=== PATIENT | female | born 1985 | race Asian ===

== ENCOUNTER 2017-09-20 16:00 | Inpatient (IN) | payer SELFPAY ==
[~2017-09-20] VITALS: Ht 171 cm; Wt 70.0 kg
[2017-09-20] MEDS ORDERED: LACTATED RINGERS 1,000 ML IV SCH (16:24)
[2017-09-20] MEDS ORDERED: PREN-380 PO (16:32)
[2017-09-20 17:45] VITALS: BP 116/77
[2017-09-20 17:59] LABS: BASOPHILS % (AUTO) 0.7 % (0.0-2.0); EOSINOPHILS # (AUTO) 0.1 K/uL (0-0.4); EOSINOPHILS % (AUTO) 1.1 % (0.0-4.0); HEMOGLOBIN 11.9 g/dL (12.0-16.0); LYMPHOCYTES # (AUTO) 1.3 K/uL (2.5-16.5); LYMPHOCYTES % (AUTO) 19.4 % (20.5-51.1); MEAN CORPUSCULAR HEMOGLOBIN 30 pg (27-31); MEAN CORPUSCULAR HGB CONC 34 g/dL (33-37); MEAN CORPUSCULAR VOLUME 90 fL (80-94); MONOCYTES # (AUTO) 0.6 K/uL (0.8-1.0); MONOCYTES % (AUTO) 8.2 % (1.7-9.3); NEUTROPHILS # (AUTO) 4.9 K/uL (1.8-7.7); NEUTROPHILS % (AUTO) 70.6 % (42.2-75.2); PLATELET COUNT (AUTO) 138 K/uL (140-450); RED BLOOD CELL COUNT(AUTO) 3.91 MIL/uL (4.20-5.40); RED CELL DISTRIBUTION WIDTH 13.7 % (11.6-13.7); WHITE BLOOD COUNT (AUTO) 6.9 K/uL (4.8-10.8)
[2017-09-20 18:37] LABS: APPEARANCE,URINE CLEAR (CLEAR); BILIRUBIN,URINE NEGATIVE (NEGATIVE); BLOOD, URINE NEGATIVE (NEGATIVE); COLOR,URINE YELLOW (YELLOW); LEUKOCYTE ESTERASE ,URINE NEGATIVE (NEGATIVE); NITRITE, URINE NEGATIVE (NEGATIVE); PH,URINE 6.5 (5.0-9.0); UGLUCOSE NEGATIVE (NEGATIVE)
[2017-09-20 18:49] LABS: ALBUMIN 2.9 g/dL (3.4-5.0); ANION GAP 13.8 (8-16); CARBON DIOXIDE 22.2 mmol/L (21-32); CREATININE 0.6 mg/dL (0.6-1.3); TOTAL BILIRUBIN 0.1 mg/dL (0.0-1.0)
[2017-09-20] MEDS ORDERED: INFLUENZA VIRUS VACCINE QUAD 0.5 ML SYR IMVAC SCH (22:00)
[2017-09-20] MEDS ORDERED: ceFAZolin 1,000 MG VIAL ONE (23:42)
[2017-09-20] MEDS ORDERED: OXYTOCIN 10 UNITS/ML VIAL ONE (23:47)
[2017-09-20] MEDS ORDERED: METHYLERGONOVINE 0.2 MG/ML AMP ONE (23:48)
[2017-09-20] MEDS ORDERED: TRIAMCINOLONE 40 MG/ML 5ML VIAL ONE (23:48)
[2017-09-20] MEDS ORDERED: MIDAZOLAM 2 MG/2 ML VIAL ONE (23:49)
[2017-09-20] MEDS ORDERED: MORPHINE PRES FREE 10 MG/10 ML AMP IV ONE (23:49)
[2017-09-21] MEDS ORDERED: OXYTOCIN 20 UNITS in LACTATED RINGERS 1,000 ML IV SCH (00:22)
[2017-09-21] MEDS ORDERED: MEPERIDINE 25 MG/ML SYR IVP PRN (00:25)
[2017-09-21] MEDS ORDERED: diphenhydrAMINE 50 MG/ML VIAL IVP PRN ×2 (00:25)
[2017-09-21] MEDS ORDERED: NALOXONE 0.4 MG/ML VIAL IVP PRN ×3 (00:25)
[2017-09-21] MEDS ORDERED: ONDANSETRON 4 MG/2 ML VIAL IVP PRN (00:25)
[2017-09-21] MEDS ORDERED: NALBUPHINE 10 MG/ML AMP IVP PRN (00:25)
[2017-09-21] MEDS ORDERED: HYDROmorphone 1 MG/ML AMP IVP PRN (00:25)
[2017-09-21] MEDS ORDERED: HYDROmorphone PFS 2 MG/ML SYR IVP PRN (00:31)
[2017-09-21] MEDS: ONDANSETRON 4 MG/2 ML VIAL IVP PRN ×2 (01:51→06:41)
[2017-09-21] MEDS ORDERED: OXYTOCIN 20 UNITS/LR PREMIX 1,000 ML IV ONE ×2 (03:41→20:36)
[2017-09-21] MEDS: OXYTOCIN 20 UNITS in LACTATED RINGERS 1,000 ML IV SCH ×2 (03:53→12:12)
[2017-09-21] MEDS: KETOROLAC 30 MG/ML VIAL IM/IVP SCH ×3 (05:52→18:12)
[2017-09-21 07:19] LABS: BASOPHILS # (AUTO) 0.1 K/uL (0.00-0.22); BASOPHILS % (AUTO) 0.7 % (0.0-2.0); EOSINOPHILS # (AUTO) 0.1 K/uL (0-0.4); HEMATOCRIT 33.9 % (36-48); HEMOGLOBIN 11.1 g/dL (12.0-16.0); LYMPHOCYTES # (AUTO) 0.8 K/uL (2.5-16.5); MEAN CORPUSCULAR HEMOGLOBIN 30 pg (27-31); MEAN CORPUSCULAR HGB CONC 33 g/dL (33-37); MEAN CORPUSCULAR VOLUME 90 fL (80-94); MONOCYTES # (AUTO) 0.5 K/uL (0.8-1.0); MONOCYTES % (AUTO) 4.6 % (1.7-9.3); NEUTROPHILS # (AUTO) 9.7 K/uL (1.8-7.7); NEUTROPHILS % (AUTO) 86.7 % (42.2-75.2); PLATELET COUNT (AUTO) 121 K/uL (140-450); RED BLOOD CELL COUNT(AUTO) 3.77 MIL/uL (4.20-5.40); RED CELL DISTRIBUTION WIDTH 13.4 % (11.6-13.7); WHITE BLOOD COUNT (AUTO) 11.2 K/uL (4.8-10.8)
[2017-09-21] MEDS ORDERED: OXYTOCIN 10 UNITS/ML VIAL IM PRN (12:30)
[2017-09-21] MEDS ORDERED: METHYLERGONOVINE 0.2 MG/ML AMP IM PRN (12:30)
[2017-09-21] MEDS ORDERED: BENZOCAINE/MENTHOL 20%-0.5% 60 GM CAN TP PRN (12:30)
[2017-09-21] MEDS ORDERED: MEASLES, MUMPS, AND RUBELLA 1 VIAL SQVAC PRN (12:30)
[2017-09-21] MEDS ORDERED: TEMAZEPAM 15 MG CAP PO PRN (12:30)
[2017-09-21] MEDS ORDERED: BISACODYL 10 MG SUPP RC PRN (12:30)
[2017-09-21] MEDS ORDERED: oxyCODONE/APAP 5/325 MG 1 TAB TAB PO PRN (12:30)
[2017-09-21] MEDS ORDERED: METHYLERGONOVINE 0.2 MG TAB PO PRN (12:30)
[2017-09-21] MEDS ORDERED: SODIUM PHOSPHATE 118 ML ENEM RC PRN (12:30)
[2017-09-21] MEDS ORDERED: SENNA 8.6 MG TAB PO SCH (21:00)
[2017-09-21] MEDS: CALCIUM POLYCARBOPHIL 625 MG TAB PO SCH (21:00)
--- NOTE | 2017-09-22 08:36 | NUR ---
PATIENT HAS BEEN SCREENED AND CATEGORIZED LOW NUTRITION RISK. PATIENT WILL BE SEEN WITHIN 7 DAYS OF ADMISSION. 09/26/[address]
[2017-09-22] MEDS: CALCIUM POLYCARBOPHIL 625 MG TAB PO SCH ×3 (08:52→17:51)
[2017-09-22] MEDS: HYDROcodone/APAP 5/325 MG 1 TAB TAB PO PRN (17:54)
[2017-09-22] MEDS ORDERED: DOCUSATE SOD/SENNA 50/8.6 MG 1 TAB PO SCH (21:00)
[2017-09-23] MEDS: HYDROcodone/APAP 5/325 MG 1 TAB TAB PO PRN (05:22)
[2017-09-23 12:12] LABS: RAPID PLASMA REAGIN NON-REACTIVE (Non Reactiv)
== END 2017-09-23 16:10 | disposition home or self-care (01) | DRG 766 ==
LOC: MLD 16:00 → MFCC 09-21 01:30
PROVIDERS: ADMIT Obstetrics & Gynecology; ATTEND Obstetrics & Gynecology
PROC: 3E0234Z Introduction of Serum, Toxoid and Vaccine into Muscle, Percutaneous Approach (ICD-10-PCS; 2017-09-20)
PROC: 10D00Z1 Extraction of Products of Conception, Low, Open Approach (ICD-10-PCS; principal; 2017-09-21)
DX: O34.219 Maternal care for unspecified type scar from previous cesarean delivery (principal); Z23 Encounter for immunization; Z37.0 Single live birth; Z3A.39 39 weeks gestation of pregnancy
CPT/HCPCS: 36415; 80053; 81003; 85025; 86592; 86886; 86900; 86901; 90658; 90715; J0690; J1885; J2210; J2250; J2270; J2405; J2590; J3301; J7120